=== PATIENT | male | born 2005 | race Caucasian/White ===

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

== ENCOUNTER 2024-12-30 16:29 | Emergency (ER) | payer MEDICAID, SELFPAY ==
--- NOTE | ~2024-12-30 | CT_ITS ---
CLINICAL HISTORY: trauma CT head without contrast Comparison: None Findings: No intra-axial mass, midline shift, hydrocephalus, or acute hemorrhage. No significant atrophy-like change or white matter disease. There is no sinus or mastoid fluid. The orbits are within normal limits. There is no acute fracture. IMPRESSION: 1. No acute intracranial findings. This document has been electronically signed by: Sulema Bautista MD on 12/30/2024 18:43:09
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
--- NOTE | ~2024-12-30 | CT_ITS ---
CLINICAL HISTORY: trauma CT cervical spine without contrast Comparison: None Findings: Vertebral alignment is within normal limits. No significant degenerative change. No acute fractures or dislocations. No acute findings on limited view of the intracranial contents. No cervical fluid collections or masses. Lung apices are clear. IMPRESSION: No acute findings. This document has been electronically signed by: Sulema Bautista MD on 12/30/2024 18:44:23
--- NOTE | ~2024-12-30 | CT_ITS ---
CLINICAL HISTORY: trauma CT abdomen and pelvis with contrast Comparison: None Findings: No consolidation or effusion. The gallbladder and solid organs are within normal limits. No renal stones. No bowel obstruction, pneumoperitoneum, or pneumatosis. Pelvic contents unremarkable. Normal appendix. Moderate distention of the urinary bladder. Otherwise unremarkable pelvic contents. No acute fracture. IMPRESSION: No hemoperitoneum or abdominal organ injury. This document has been electronically signed by: Sulema Bautista MD on 12/30/2024 18:49:40
--- NOTE | ~2024-12-30 | CT_ITS ---
CLINICAL HISTORY: trauma CT maxillofacial without contrast Comparison: None Findings: No acute fractures. Temporomandibular joints are intact. Minimal mucosal thickening within the paranasal sinuses. No air-fluid levels. Unremarkable orbital contents. Visualized intracranial contents are within normal limits. No foreign bodies. IMPRESSION: No acute displaced facial bone fracture. This document has been electronically signed by: Sulema Bautista MD on 12/30/2024 18:46:18
[2024-12-30 16:40] VITALS: BP 108/53; BP 140/82; PULSE 106; PULSE 82; RESP 16; TEMP 36.6; O2SAT 96; O2SAT 98; BMI 23.6
--- NOTE | 2024-12-30 16:55 | PC.NURSE ---
Provider at bedside evaluating the patient. Alert & oriented, collared for spinal immobilization. Plan for IV, labs, imaging.
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
[2024-12-30 17:12] LABS: MANUAL DIFF FLAG NO
[2024-12-30 17:13] LABS: Basophils Percent Auto 0.5 % (0-2); Eosinophils Percent Auto 0.3 % (0-4); Hematocrit 41.9 % (42.0-52.0); Hemoglobin 14.1 g/dl (14.0-18.0); Imm Gran Abs Auto 0.02 X10*3/uL (0.00-0.03); Imm Gran Pct Auto 0.3 % (0.0-0.4); Lymphocytes Absolute Auto 1.6 X10*3/uL (1.2-4.9); Lymphocytes Percent Auto 21.7 % (20-40); Mean Corpuscular HGB Conc 33.7 g/dl (31.0-36.0); Mean Corpuscular Hemoglobin 29.7 pg (27.0-33.0); Mean Corpuscular Volume 88.4 fL (80.0-98.0); Mean Platelet Volume 9.7 fL (9.4-12.4); Monocytes Absolute Auto 0.5 X10*3/uL (0.1-1.2); Monocytes Percent Auto 6.6 % (2-11); Neutrophils Absolute Auto 5.2 x10*3/uL (2.0-8.3); Neutrophils Percent Auto 70.6 % (45-73); Platelet Count 233 X10*3/uL (160-400); Red Blood Count 4.74 X10*6/uL (4.60-5.80); Red Cell Distribution Width 12.4 % (11.0-16.0); White Blood Count 7.3 X10*3/uL (4.8-10.8)
[2024-12-30] MEDS: iohexoL 350 MG/ML 100 ML INFUS..BTL IV (17:22)
[2024-12-30 17:36] LABS: Alanine Aminotransferase 18 U/L (0-40); Albumin Level 4.4 g/dL (3.5-5.0); Alkaline Phosphatase 59 U/L (39-117); Anion Gap 13 (12-20); Aspartate Amino Transferase 31 U/L (5-37); Bilirubin Total 0.7 mg/dL (0.0-1.0); Blood Urea Nitrogen 12 mg/dL (9-16); Calcium 9.1 mg/dL (8.4-10.2); Carbon Dioxide 26 mmol/L (22-29); Chloride 105 mmol/L (96-108); Creatinine Clr Calc Pharmacy 118.7; Estimated Glomerular Filt Rate > 60; Glucose Random 90 mg/dL (60-115); Potassium 4.1 mmol/L (3.3-5.1); Sodium 140 mmol/L (135-145); Total Protein 6.9 g/dL (6.5-8.0)
[2024-12-30 18:01] VITALS: BP 117/65; PULSE 82; RESP 16; TEMP 37.1; O2SAT 97
--- OUTSIDE RECORDS SUMMARY | 2024-12-30 18:40 | XMS_ITS | Clinical Summary ---
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 Name Role Phone Flores Orozco GARETH Primary Care Provider [phone] Encounters Date Type Department Care Team Description 12/19/2024 Population Health Risk Score [facility] ([facility]) Department [address] [facility] [address] [place] [address] Provider, Population Health Generic from Last 3 Months Social History Tobacco Use Types Packs/Day Years Used Date Smoking Tobacco: Never Assessed Sex and Gender Information Value Date Recorded Sex Assigned at Male 07/26/2022 10:18 AM EDT Legal Sex Male 10:18 AM EDT Gender Identity Male 07/26/2022 10:18 AM EDT Sexual Orientation Straight 07/26/2022 10 :18 AM EDT Last Filed Vital Signs Vital Sign Reading Time Taken Comments Blood Pressure 122/70 12/31/2021 12:04 AM EDT Pulse 68 12/31/2021 12:04 AM EDT Temperature - - Respiratory Rate - - Oxygen Saturation - - Inhaled Oxygen Concentration - - Weight 74.2 kg (163 lb 9.6 oz) 12/31/2021 12:04 AM EDT Height 171.5 cm (5' 7.5 ) 12/31/2021 12:04 AM ED T Body Mass Index 25.24 12/31/2021 12:04 AM EDT Plan of Treatment Health Maintenance Due Date Last Done Comments Chlamydia and Gonorrhea Screening 2004 Depression Screening 2004 HIV Screening 2004 Alcohol/Substance Use Screening 2016 Tobacco Screening 2016 Family Planning (PISQ) 2019 Hepatitis C Screening 2022 COVID-19 Vaccine ( season) 2024 10/13/2021, 09/03/2021 Influenza Vaccine (#1) 2024 , 07/19/2017, 08/20/2014, Additional history exists DTaP/Tdap/Td Vaccines (7 - Td or Tdap) 07/19/2027 07/19/2017, 06/21/2008, 06/07/2006, Additional history exists Zoster Vaccines (1 of 2) 2054 RSV Patients and Patients Aged 60 years or older (1 - 1-dose 75+ series) 2079 Hepatitis B Vaccines Completed 02/17/2005, 2004, 2004 Pneumococcal Vaccine: Pediatrics (0 to 5 Years) and At-Risk Patients (6 to 49) Years) Aged Out 02/17/2005, 2004, 2004 No longer eligible based on patient's age to complete this topic HIB Vaccines Completed 08/02/2005, 09/28, 2004 IPV Vaccines Completed 06/21/2008, 01/25, 2004, Additional history exists Hepatitis A Vaccines Completed 07/19/2017, 07/14/20 10 HPV Vaccines Completed 05/22/2019, 07/19/2017 Meningococcal Vaccine Completed 07/22/2020, 017 RSV under 20 months Aged Out No longe r eligible based on patient's age to complete this topic Rotavirus Vaccines Aged Out No longer eligible based on patient's age to complete this topic Care Teams Hay Stacker Operator Relationship Specialty Start Date End Date Flores Orozco NP [address] [place] [id number] PCP - General Family Medicine 11/22/23
[2024-12-30 19:14] VITALS: BP 128/76; PULSE 77; RESP 16; TEMP 37; O2SAT 98
[2024-12-30 19:17] VITALS: BP 128/76; PULSE 77; RESP 16; TEMP 37; O2SAT 98
== END 2024-12-30 19:18 | disposition home or self-care (01) ==
PROVIDERS: Physician Assistant Medical; Emergency Provider Internal Medicine
DX: S00.83XA Contusion of other part of head, initial encounter (principal); S00.212A Abrasion of left eyelid and periocular area, initial encounter; V13.4XXA Pedal cycle driver injured in collision with car, pick-up truck or van in traffic accident, initial encounter; Y93.55 Activity, bike riding; Y92.414 Local residential or business street as the place of occurrence of the external cause; Y99.9 Unspecified external cause status
CPT/HCPCS: 12011; 36415; 70450; 70486; 71260; 72125; 74177; 80053; 85025; 86850; 86900; 86901; 99284; Q9967

== ENCOUNTER → 2024-12-30 16:56 | Outpatient (BNV) | payer MEDICAID, SELFPAY | PROVIDERS: Emergency Provider Internal Medicine; Visit Provider Radiology Diagnostic Radiology | DX: S00.83XA Contusion of other part of head, initial encounter (principal); V89.2XXA Person injured in unspecified motor-vehicle accident, traffic, initial encounter | CPT/HCPCS: 70450; 70486; 71260; 72125; 74177 ==